=== PATIENT | female | born 1970 | race Caucasian/White ===

== ENCOUNTER 2021-04-18 15:49 | Outpatient (CLI) | payer BC, SELFPAY ==
[2021-04-18 16:03] VITALS: BP 116/72; PULSE 104; RESP 16; TEMP 37.9; O2SAT 96; BMI 36.8
[2021-04-18] MEDS: 0.9% Saline Lock 10 ML Syringe IV (16:15)
[2021-04-18 16:53] VITALS: BP 107/68; PULSE 92; RESP 18; TEMP 37.3; O2SAT 96
[2021-04-18 17:40] VITALS: BP 116/71; PULSE 96; RESP 18; TEMP 37.4; O2SAT 96
[2021-04-18 20:21] LABS: Bedside Glucose 115 mg/dL (70-110)
== END 2021-04-18 17:46 | disposition home or self-care (01) ==
LOC: MS3OUT 15:49 → MS3 15:51
PROVIDERS: Referring Provider Nurse Practitioner Adult Health; Visit Provider Nurse Practitioner Adult Health
DX: Z23 Encounter for immunization (principal); U07.1 COVID-19
CPT/HCPCS: 82962; J7050; M0245; Q0245; A4216